=== PATIENT | female | born 1985 | race Caucasian/White ===

== ENCOUNTER → 2020-09-06 | Outpatient (CLI) | payer OTHER | END | disposition home or self-care (01) | LOC: LABWHC1 10:39 | DX: F90.0 Attention-deficit hyperactivity disorder, predominantly inattentive type (principal) | CPT/HCPCS: 36415; 80307 ==

== ENCOUNTER → 2020-09-30 | Outpatient (CLI) | payer OTHER ==
[2020-09-30 10:35] LABS: Basophils # (A) 0.1 k/uL (0-0.2); Basophils % (A) 1 %; Eosinophils # (A) 0.2 k/uL (0-0.7); Eosinophils % (A) 2 %; HCT 38.3 % (34.0-46.0); HGB 13.4 gm/dL (11.4-16.0); Lymphocytes # (A) 2.1 k/uL (1.0-4.8); Lymphocytes % (A) 25 %; MCH 31.7 pg (25.0-35.0); MCHC 34.8 g/dL (31.0-37.0); Monocytes # (A) 0.4 k/uL (0-1.0); Monocytes % (A) 5 %; Neutrophils # (A) 5.6 k/uL (1.3-7.7); Neutrophils % (A) 66 %; Platelet Count 237 k/uL (150-450); RBC 4.21 m/uL (3.80-5.40); RDW 12.4 % (11.5-15.5); WBC 8.6 k/uL (3.8-10.6)
[2020-09-30 17:28] LABS: Progesterone 2.3 ng/mL
[2020-09-30 18:12] LABS: African American GFR (CKD) 110.7 (60.0-200.0); Albumin 4.3 g/dL (3.80-4.90); Albumin/Globulin Ratio 1.87 (1.60-3.17); Anion Gap 9.2 mmol/L (4.00-12.00); BUN/Creat Ratio 11.25 Ratio (12.00-20.00); Calcium 9.4 mg/dL (8.7-10.3); Carbon Dioxide 25.8 mmol/L (21.6-31.8); Chol/HDL Ratio 2.44; Globulin 2.3 g/dL (1.6-3.3); Non-African American GFR(CKD) 95.5 (60.0-200.0); Potassium 3.9 mmol/L (3.5-5.5); Total Bilirubin 0.6 mg/dL (0.3-1.2); Total Protein 6.6 g/dL (6.2-8.2)
[2020-09-30 18:21] LABS: Luteinizing Hormone 1.2 mIU/mL
[2020-09-30 18:22] LABS: Follicle Stimulating Hormone 1.5 mIU/mL
[2020-09-30 18:31] LABS: Estradiol 790.7 pg/mL
[2020-09-30 19:53] LABS: Hemoglobin A1C 4.9 % (4.0-6.0)
== END | disposition home or self-care (01) ==
LOC: LABWHC1 09:15
PROVIDERS: ATTEND Nurse Practitioner Family
DX: E25.9 Adrenogenital disorder, unspecified (principal); E34.8 Other specified endocrine disorders; F64.8 Other gender identity disorders; R89.1 Abnormal level of hormones in specimens from other organs, systems and tissues; L68.0 Hirsutism
CPT/HCPCS: 36415; 80053; 80061; 82642; 82670; 82679; 82681; 83001; 83002; 83036; 84144; 84270; 84403; 85025

== ENCOUNTER → 2021-08-04 | Outpatient (CLI) | payer OTHER ==
[2021-08-04 16:44] LABS: Chol/HDL Ratio 2.57 Ratio; LDL Cholesterol,Calculated 97.9 mg/dL (0.0-131.0)
== END | disposition home or self-care (01) ==
LOC: LABWHC1 09:04
PROVIDERS: ATTEND Nurse Practitioner Family
DX: E25.9 Adrenogenital disorder, unspecified (principal); E34.8 Other specified endocrine disorders; F64.8 Other gender identity disorders; L68.0 Hirsutism; R89.1 Abnormal level of hormones in specimens from other organs, systems and tissues
CPT/HCPCS: 36415; 80061; 82670

== ENCOUNTER 2021-10-11 23:04 | Inpatient (IN) | payer OTHER ==
[2021-10-12 03:09] LABS: Amphetamine Screen,Urine Not Detected (NotDetected); Barbiturate Screen,Urine Not Detected (NotDetected); Benzodiazepines Screen,Urine Not Detected (NotDetected); Cocaine Screen,Urine Not Detected (NotDetected); Methadone Screen, Urine Not Detected (NotDetected); Opiate Screen,Urine Not Detected (NotDetected); Oxycodone Screen, Urine Not Detected (NotDetected); Phencyclidine Screen,Urine Not Detected (NotDetected); Tricyclic Antidepressant,Urine Not Detected (NotDetected); Urn Cannabinoid Scrn Not Detected (NotDetected)
--- NOTE | 2021-10-12 05:23 | ED ---
General Adult HPI - General Source: patient, RN notes reviewed, old records reviewed Mode of arrival: ambulatory Limitations: no limitations <David Parker - Last Filed: 10/12/21 06:30> <Keith Estes - Last Filed: 10/12/21 07:44> - General Chief complaint: Psychiatric Symptoms Stated complaint: Mental Health Time Seen by Provider: 10/12/21 03:18 - History of Present Illness Initial comments: Patient is a 36-year-old with past medical history remarkable for psychiatric illness who has been compliant with medications presents emergency department concern for suicidal ideations. Has thoughts of wanting to order chemicals off [employer] to take him to kill himself. Does have prior attempts with self inju ring.. Denies any attempts today and denies taking any medications. Denies any homicidal ideations, attempts, plans. Denies any alcohol use. Denies any drug use. Denies any auditory or visual hallucinations. Has no other acute complaints at this time. Informed his therapist of his suicidal ideations who instructed the patient to come to the emergency department for further evaluation by psychiatry. (David Parker) - Related Data Allergies Allergy/AdvReac Type Severity Reaction Status Date / Time No Known Allergies Allergy Verified 10/11/21 23:51 Review of Systems ROS Other: All systems not noted in ROS Statement are negative. <David Parker - Last Filed: 10/12/21 06:30> ROS Other: All systems not noted in ROS Statement are negative. <Keith Estes - Last Filed: 10/12/21 07:44> ROS Statement: Those systems with pertinent positive or pertinent negative responses have been documented in the HPI. Review of Systems: CONST: Denies fever EYES: Denies blurry vision ENT: Denies nasal congestion C/V: Denies Chest pain RESP: Denies shortness of breath GI: Denies abdominal pain : Denies dysuria SKIN: Denies rash. MSK: Denies joint pain. NEURO: Denies headache PSYCH: Denies homicidal ideations/plans/attempts. Denies visual or auditory hallucinations. Endorses suicidal ideations, but denies any plans or attempts. (David Parker) Past Medical History Past Medical History: No Reported History History of Any Multi-Drug Resistant Organisms: None Reported Past Surgical History: No Surgical Hx Reported Past Psychological History: Bipolar, PTSD Smoking Status: Never smoker Past Alcohol Use History: None Reported Past Drug Use History: None Reported <David Parker - Last Filed: 10/12/21 06:30> General Exam Limitations: no limitations <KeithDavid - Last Filed: 10/12/21 06:30> - General Exam Comments Initial Comments: General: Appears in no acute distress. HEAD: Normal with no signs of head trauma. EYES: PERRLA, EOMI, conjunctiva normal, no discharge. ENT: Hearing grossly intact, normal oropharynx. RESPIRATORY: Clear breath sounds bilaterally. No wheezes, rales, or rhonchi. C/V: Regular rate and rhythm. S1 and S2 auscultated, no edema, peripheral pulses 2+ and intact throughout ABD: Abd is soft, nontender, nondistended EXT: Normal range of motion, no obvious deformity SKIN: No rashes or lesions observed on exposed skin. NEURO: Alert and Oriented 4. (David Parker) Course Vital Signs 10/11/21 10/12/21 10/12/21 23:46 03:26 06:13 Pulse Rate 80 94 83 Respiratory 16 18 18 Rate Blood Pressure 126/84 120/79 109/71 O2 Sat by Pulse 100 99 97 Oximetry Medical Decision Making <David Parker - Last Filed: 10/12/21 06:30> - Medical Decision Making Based on the patient's presentation and physical exam, I do believe that the patient requires psychiatric evaluation. BAT was 0. UDS is negative. I do not believe that further laboratory studies or imaging are required at this time. Patient is medically cleared for evaluation by psychiatry. Disposition is pending psychiatric evaluation. At this time it is the end of my shift. Disposition is pending psych evaluation. Patient was signed out in stable condition to Dr. Estes. (David Parker) - Lab Data Lab Results 10/12/21 10/12/21 Range/Units 02:25 06:57 Urine Opiates Screen Not Detected (NotDetected) Ur Oxycodone Screen Not Detected (NotDetected) Urine Methadone Screen Not Detected (NotDetected) Ur Propoxyphene Screen Not Detected (NotDetected) Ur Barbiturates Screen Not Detected (NotDetected) U Tricyclic Antidepress Not Detected (NotDetected) Ur Phencyclidine Scrn Not Detected (NotDetected) Ur Amphetamines Screen Not Detected (NotDetected) U Methamphetamines Scrn Not Detected (NotDetected) U Benzodiazepines Scrn Not Detected (NotDetected) Urine Cocaine Screen Not Detected (NotDetected) U Marijuana (THC) Screen Not Detected (NotDetected) Coronavirus (PCR) Not Detected (Not Detectd) Disposition <David Parker - Last Filed: 10/12/21 06:30> Time of Disposition: 07:44 <Keith Estes - Last Filed: 10/12/21 07:44> Clinical Impression: Encounter for psychiatric assessment, Suicidal ideation Disposition: ADMITTED IP TO THIS HOSP Referrals: Nonstaff,Physician [Primary Care Provider] - 1-2 days
[2021-10-12] MEDS ORDERED: ACETAMINOPHEN TAB 500 MG TAB PO STA (06:08)
[2021-10-12] MEDS ORDERED: MAG HYDROX/AL HYDROX/SIMETH 30 ML CUP PO PRN (15:57)
[2021-10-12] MEDS ORDERED: ACETAMINOPHEN TAB 325 MG TAB PO PRN (15:57)
[2021-10-12] MEDS ORDERED: MAGNESIUM HYDROXIDE 2,400 MG/10 ML CUP PO PRN (15:57)
[2021-10-12] MEDS ORDERED: HALOPERIDOL LACTATE 5 MG/ML 1 ML VIAL IM PRN (15:57)
[2021-10-12] MEDS ORDERED: LORazepam 2 MG/ML INJ IM PRN (16:06)
[2021-10-12] MEDS ORDERED: haloperidoL 5 MG TAB PO PRN (16:07)
[2021-10-12] MEDS ORDERED: PATIENT'S OWN (Progesterone, Micronized [Progesterone] 100 MG Capsule) PO SCH (16:15)
[2021-10-12] MEDS ORDERED: ESTRADIOL VALERATE IM SCH (16:15)
[2021-10-12] MEDS: VORTIOXETINE HYDROBROMIDE 20 MG TABLET PO SCH (18:06)
[2021-10-12] MEDS: BICALUTAMIDE 50 MG TAB PO SCH (18:07)
[2021-10-12] MEDS: PATIENT'S OWN (Progesterone, Micronized [Progesterone] 100 MG Capsule) PO SCH (19:15)
[2021-10-12] MEDS: LORazepam 1 MG TAB PO PRN (23:17)
--- NOTE | 2021-10-13 03:28 | P.MDCNMH ---
History of Present Illness H&P Date: 10/13/21 Chief Complaint: medical eval 36 year old female with no sinificant past medical history comes in for psych eval due to suicidal thoughts, planning on buying chemical off [employer] to kill herself. denies any medical concerns at this time, denies any fever, chills, headache, nausea vomiting, abd pain , chest pain or trouble breathing Review of Systems Pertinent positives as noted in HPI. All other systems were reviewed and are negative Past Medical History Past Medical History: No Reported History History of Any Multi-Drug Resistant Organisms: None Reported Past Surgical History: No Surgical Hx Reported Past Psychological History: Bipolar, PTSD Smoking Status: Never smoker Past Alcohol Use History: None Reported Past Drug Use History: None Reported - Past Family History Family Family Medical History: No Reported History Medications and Allergies Home Medications Medication Instructions Recorded Confirmed Type Bicalutamide 50 mg PO DAILY 10/12/21 10/12/21 History Ergocalciferol [Vitamin D2 (1250 1,250 mcg PO WE 10/12/21 10/12/21 History Mcg = 04752 Iu)] Estradiol Valerate 200mg/5ml 4 mg IM Q5D 10/12/21 10/12/21 History Injection LORazepam [Ativan] 0.5 mg PO DAILY PRN 10/12/21 10/12/21 History Progesterone, Micronized 200 mg PO DAILY 10/12/21 10/12/21 History [Progesterone] Vortioxetine Hydrobromide 20 mg PO DAILY 10/12/21 10/12/21 History [Trintellix] traZODone HCL 25 - 100 mg PO HS PRN 10/12/21 10/12/21 History Allergies Allergy/AdvReac Type Severity Reaction Status Date / Time No Known Allergies Allergy Verified 10/12/21 08:25 Physical Exam Vitals: Vital Signs Temp Pulse Pulse Resp BP BP Pulse Ox 10/12/21 19:01 98.5 F 97 18 136/92 99 10/12/21 18:22 98.5 F 97 16 99 10/12/21 09:00 18 10/12/21 08:00 97.8 F 85 18 109/72 98 10/12/21 07:00 18 10/12/21 06:13 83 18 109/71 97 Intake and Output 10/12/21 10/12/21 10/13/21 14:59 22:59 06:59 Other: Weight 56.699 kg Constitutional: No acute distress, conversant, pleasant Eyes: Anicteric sclerae, moist conjunctiva, Pupils equal round reactive to light ENMT: NC/AT Oropharynx clear, no erythema, or exudates Neck: Supple, FROM, no masses, or JVD No carotid bruits No thyromegaly Lungs: Clear to auscultation Clear to percussion Normal respiratory effort, no accessory muscle use Cardiovascular: Heart regular in rate and rhythm, No murmurs, gallops, or rubs No peripheral edema Abdominal: Soft Nontender, no guarding, rebound or rigidity Abdomen moving with respiration Normoactive bowel sounds No hepatomegaly, No splenomegaly No palpable mass No abdominal wall hernia noted Skin: Normal temperature, tone, texture, turgor No induration No subcutaneous nodules No rash, lesions No ulcers Extremities: No digital cyanosis No clubbing Pedal pulses intact and symmetrical Radial pulses intact and symmetrical No calf tenderness Psychiatric: Alert and oriented to person, place and time Depressed affect Neuro Muscles Strength 5/5 in all 4 extremities Sensation to light touch grossly present throughout Cranial nerves II-XII grossly intact No focal sensory deficits Lymphatics: no palpable cervical or supraclavicular , or inguinal lymph nodes Cranial Nerve Examination - Cranial Nerves Cranial Nerve II- Optic: Intact Cranial Nerve III- Oculomotor: Intact Cranial Nerve IV- Trochlear: Intact Cranial Nerve V- Trigeminal: Intact Cranial Nerve - Abducens: Intact Cranial Nerve VII- Facial: Intact Cranial Nerve VIII- Auditory: Intact Cranial Nerve IX- Glossopharyngeal: Intact Cranial Nerve X- Vagus: Intact Cranial Nerve XI- Accessory: Intact Cranial Nerve XII- Hypoglossal: Intact Assessment and Plan Assessment: Depression suicidal ideation Management per psych Denies any substance abuse Follow-up labs Thank you for allowing us to participate in the care of this patient. We will follow peripherally. Do not hesitate to contact us with questions. Someone can be reached from the [facility] [place] [place] at all hours of the day at [phone].
[2021-10-13 07:15] LABS: Basophils # (A) 0.1 k/uL (0-0.2); Basophils % (A) 1 %; Eosinophils # (A) 0.2 k/uL (0-0.7); Eosinophils % (A) 2 %; HCT 42.8 % (34.0-46.0); HGB 14.4 gm/dL (11.4-16.0); Lymphocytes # (A) 3.8 k/uL (1.0-4.8); Lymphocytes % (A) 44 %; MCH 31.7 pg (25.0-35.0); MCHC 33.7 g/dL (31.0-37.0); MCV 94.1 fL (80.0-100.0); Mean Platelet Volume 7.6; Monocytes # (A) 0.4 k/uL (0-1.0); Monocytes % (A) 5 %; Neutrophils # (A) 3.9 k/uL (1.3-7.7); Neutrophils % (A) 46 %; Platelet Count 250 k/uL (150-450); RBC 4.55 m/uL (3.80-5.40); RDW 11.9 % (11.5-15.5); WBC 8.6 k/uL (3.8-10.6)
[2021-10-13 07:38] LABS: ALT 21 U/L (4-34); AST 24 U/L (14-36); African American GFR (CKD) >90 (>60 ml/min/1.73 sqM); Albumin 4.3 g/dL (3.5-5.0); Alkaline Phosphatase 42 U/L (38-126); Anion Gap 7 mmol/L; Blood Urea Nitrogen 7 mg/dL (7-17); Calcium 9.6 mg/dL (8.4-10.2); Carbon Dioxide 26 mmol/L (22-30); Chloride 105 mmol/L (98-107); Glucose 94 mg/dL (74-99); Non-African American GFR(CKD) >90 (>60 ml/min/1.73 sqM); Potassium 4.2 mmol/L (3.5-5.1); Sodium 138 mmol/L (137-145); Total Protein 7.8 g/dL (6.3-8.2)
[2021-10-13] MEDS: VORTIOXETINE HYDROBROMIDE 20 MG TABLET PO SCH (09:51)
[2021-10-13] MEDS: BICALUTAMIDE 50 MG TAB PO SCH (09:51)
[2021-10-13] MEDS: PATIENT'S OWN (Progesterone, Micronized [Progesterone] 100 MG Capsule) PO SCH (10:48)
[2021-10-13 11:09] LABS: Chol/HDL Ratio 2.36 Ratio; LDL Cholesterol,Calculated 98.8 mg/dL (0.0-131.0); VLDL Calculation 16.64 mg/dL (5.00-40.00)
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
[2021-10-13] MEDS: LORazepam 1 MG TAB PO PRN (22:07)
[2021-10-14 07:22] VITALS: TEMP 97.7
[2021-10-14] MEDS: BICALUTAMIDE 50 MG TAB PO SCH (09:28)
[2021-10-14] MEDS: VORTIOXETINE HYDROBROMIDE 20 MG TABLET PO SCH (09:28)
[2021-10-14] MEDS: PATIENT'S OWN (Progesterone, Micronized [Progesterone] 100 MG Capsule) PO SCH (09:30)
--- NOTE | 2021-10-14 13:04 | P.PN ---
Subjective Progress Note Date: 10/14/21 Principal diagnosis: Major depressive disorder unspecified Posttraumatic stress disorder unspecified Autism spectrum disorder by history Cluster B personality disorder by history Dissociative disorder unspecified Subjective data: I'm not sure why this personality decided to kill ourselves. We do not agree with that I have about 6 personalities that I am dealing with There was something related to the work that was stressing me out Objective data: Patient continues to refer to herself a combination of 6 people and personalities Patient states that the current personalities surprise as to why she tried to kill herself Patient remains euphoric tangential and circumstantial Insight into her problem is poor Patient's formal and operational judgment are impaired Problem-solving abilities impaired Plan: Patient continues to meet the criteria for hospitalization in inpatient treatment for stabilization of psychiatric symptoms and safety Recommend continuation of current medications and treatment Continue supportive care and participation in on the shaikh activities Avelino Silvana Oneil 10/14/2021 Objective - Vital Signs Vital signs: Vital Signs Temp 97.7 F 10/14/21 07:21 Pulse 90 10/14/21 07:21 Resp 16 10/13/21 03:59 BP 119/73 10/14/21 07:21 Pulse Ox 98 10/14/21 07:21 - Labs CBC & Chem 7: 10/13/21 06:51 10/13/21 06:51
[2021-10-14] MEDS: LORazepam 1 MG TAB PO PRN ×2 (15:33→21:13)
[2021-10-14] MEDS: traZODone HCL 50 MG TAB PO PRN (21:13)
[2021-10-15] MEDS: VORTIOXETINE HYDROBROMIDE 20 MG TABLET PO SCH (08:05)
[2021-10-15] MEDS: BICALUTAMIDE 50 MG TAB PO SCH (08:05)
[2021-10-15] MEDS: PATIENT'S OWN (Progesterone, Micronized [Progesterone] 100 MG Capsule) PO SCH (08:06)
--- NOTE | 2021-10-15 11:38 | P.PN ---
Subjective Progress Note Date: 10/15/21 Principal diagnosis: Major depressive disorder unspecified Posttraumatic stress disorder unspecified Autism spectrum disorder by history Cluster B personality disorder by history Dissociative disorder unspecified Subjective data: Patient did not verbalize any issues or concerns at this time Patient was seen in in the lounge where she was sitting with several other patients but not actually interacting or socializing Patient denies that she is having any issues or concerns at this time Objective data: Patient continues to refer to herself a combination of 6 people and per sonalities Patient states that the current personalities are surprised as to why she tried to kill herself Patient remains euphoric tangential and circumstantial Insight into her problem is poor Patient's formal and operational judgment are impaired Problem-solving abilities impaired Plan: Patient continues to meet the criteria for hospitalization in inpatient treatment for stabilization of psychiatric symptoms and safety Recommend continuation of current medications and treatment Continue supportive care and participation in [facility] the sha[facility] activities [facility] Objective - Vital Signs Vital signs: Vital Signs Temp 97.7 F 10/14/21 07:21 Pulse 90 10/14/21 07:21 Resp 16 10/13/21 03:59 BP 119/73 10/14/21 07:21 Pulse Ox 98 10/14/21 07:21 Intake & Output 10/14/21 10/15/21 10/15/21 18:59 06:59 18:59 Weight 57.3 kg - Labs CBC & Chem 7: 10/13/21 06:51 10/13/21 06:51
[2021-10-15] MEDS: traZODone HCL 50 MG TAB PO PRN (22:10)
[2021-10-16 06:31] VITALS: BP 134/79; PULSE 63; RESP 14
[2021-10-16] MEDS: BICALUTAMIDE 50 MG TAB PO SCH (08:49)
[2021-10-16] MEDS: VORTIOXETINE HYDROBROMIDE 20 MG TABLET PO SCH (08:49)
[2021-10-16] MEDS: PATIENT'S OWN (Progesterone, Micronized [Progesterone] 100 MG Capsule) PO SCH (08:50)
[2021-10-16] MEDS ORDERED: ESTRADIOL VALERATE IM SCH (09:00)
--- NOTE | 2021-10-16 13:30 | P.DS ---
Providers Date of admission: 10/12/21 15:55 Attending physician: Luis Jeffers MD Consults: 10/12/21 15:57 Consult Physician Routine Consulting Provider: Sergio Physician Consult Reason/Comments: history and physical/medical management Do you want consulting provider notified?: Yes Primary care physician: Physician Nonstaff - Discharge Diagnosis(es) (1) Suicidal ideation Current Visit: Yes Status: Resolved Priority: Low (2) Major depressive disorder Current Visit: Yes Status: Acute Priority: Medium (3) Cluster B personality disorder Current Visit: Yes Status: Chronic Priority: Medium (4) Dissociative disorder Current Visit: Yes Status: Chronic Priority: Low Hospital Course: HISTORY: Patient is a 36-year-old transsexual who presented to the hospital on 10/12/2021 for suicidal ideation with plan to kill himself with silver nitrite. The patient was [facility] call with her therapist, Oskar Lundberg, where she informed him that she intended to kill herself with silver nitrite. She was directed to go to the crisis center and [place], [place]. She was subsequently discharged in her therapist called and told her to go to the nearest hospital. As previous report, the patient reported that she was suicidal due to issues with the relationship with her . Furthermore, the patient reported significant work stressors. She subsequently admitted to the psychiatric unit under a formal voluntary admission. 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 The patient reports at this time, suicidal ideation however is not endorsing any symptoms of hopelessness, helplessness, change in appetite, change in hygiene and grooming, or feelings of excessive guilt. The patient does not report any significant history of bipolar disorder. She reports no periods of excessive energy, mood lability, or impulsivity. She denies any history of auditory or visual hallucinations. The patient does express that she has multiple personalities. 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 The patient reports that this has been ongoing since she was a young child but reports that she does not plan on meeting adding all her personalities. HOSPITAL COURSE: We admitted the patient to under the care of Dr. Cobian. We provided a comprehensive biopsychosocial assessment. The crm consultant completed the admision medical evaluation and did not diagnosis of major medical problem. We continued his outpatient medications including by Casodex 50 mg daily, estradiol validate 20 mg IM every 5 days and progesterone 200 mg daily. We continued also until next 20 mg daily and trazodone 50 mg at bedtime when necessary for sleep. She participated actively in therapeutic groups and activities. She posed no management problem and had no episodes of behavioral dyscontrol. The distress he expressed admission gradually abated. At time of discharge she denied suicidal ideation, intent or plan. She plans to return home and continue with his outpatient mental health treatment. MENTAL STATUS ON DISCHARGE: She presented as a casually groomed thin transsexual male who was pleasant on approach. She eye contact and attended to the interview. She had no distinction features or prominent physical abnormalities. She had a bright but blunted facial expression. She was alert and oriented to person, place and time. She showed no abnormality of psychomotor activity. Her speech was spontaneous with normal rate, volume and rhythm. Affect was blunted but appropriate. She denied suicidal ideation and wishes. She denied homicidal ideation. She denied feeling hopeless, helpless or worthless. She did not express phobias, ideas reference, paranoid ideation or delusions. Her thinking was abstract and associations were coherent, logical and goal directed. She denied hallucinations did not appear to be responding to internal stimuli. DISPOSITION: She would return home and follow up with her therapist on 10/18/2021. Her discharge psychotropic medications include Trintellix 20 mg daily and trazodone 50 mg at bedtime when necessary for sleep. Patient Condition at Discharge: Stable Plan - Discharge Summary Discharge Rx Participant: No New Discharge Prescriptions: Continue Ergocalciferol [Vitamin D2 (1250 Mcg = 07998 Iu)] 1,250 mcg PO WE traZODone HCL 25 - 100 mg PO HS PRN PRN Reason: Insomnia Estradiol Valerate 200mg/5ml Injection 4 mg IM Q5D Progesterone, Micronized [Progesterone] 200 mg PO DAILY Bicalutamide 50 mg PO DAILY LORazepam [Ativan] 0.5 mg PO DAILY PRN PRN Reason: Anxiety Vortioxetine Hydrobromide [Trintellix] 20 mg PO DAILY #30 tab Discharge Medication List Bicalutamide 50 mg PO DAILY 10/12/21 [History] Ergocalciferol [Vitamin D2 (1250 Mcg = 25717 Iu)] 1,250 mcg PO WE 10/12/21 [History] Estradiol Valerate 200mg/5ml Injection 4 mg IM Q5D 10/12/21 [History] LORazepam [Ativan] 0.5 mg PO DAILY PRN 10/12/21 [History] Progesterone, Micronized [Progesterone] 200 mg PO DAILY 10/12/21 [History] traZODone HCL 25 - 100 mg PO HS PRN 10/12/21 [History] Vortioxetine Hydrobromide [Trintellix] 20 mg PO DAILY #30 tab 10/16/21 [Rx] Follow up Appointment(s)/Referral(s): [facility] [Other] - 10/18/21 4:00 pm (Virtual appointment Oskar Lundberg 10/18 @ 16:00) Nonstaff,Physician [Primary Care Provider] - 1-2 days Activity/Diet/Wound Care/Special Instructions: Activity and diet as tolerated. Avoid the use of street drugs and alcohol. Take all medications as prescribed. When you are in need of refills on your medications please contact your medical provider and/or outpatient psychiatrist to have this done. Please go to scheduled outpatient appointment for aftercare treatment. If symptoms return or become worse, call the crisis line at and/or go to the nearest emergency room for evaluation Discharge Disposition: HOME SELF-CARE
[2021-10-18] MEDS ORDERED: ERGOCALCIFEROL 1,250 MCG (50,000 IU) CAPSULE PO SCH (09:00)
== END 2021-10-16 15:08 | disposition home or self-care (01) | DRG 881 ==
LOC: EC 23:04 → 3MHU 10-12 15:55
PROVIDERS: ADMIT Psychiatry & Neurology Psychiatry; ATTEND Psychiatry & Neurology Psychiatry
DX: F32.9 Major depressive disorder, single episode, unspecified (principal); R45.851 Suicidal ideations; F60.89 Other specific personality disorders; F44.81 Dissociative identity disorder; Z20.822 Contact with and (suspected) exposure to COVID-19; F84.0 Autistic disorder; F44.9 Dissociative and conversion disorder, unspecified; F64.0 Transsexualism; F43.10 Post-traumatic stress disorder, unspecified; Z56.0 Unemployment, unspecified; Z79.890 Hormone replacement therapy; Z79.899 Other long term (current) drug therapy; Z91.51 Personal history of suicidal behavior; Z81.1 Family history of alcohol abuse and dependence; Z81.8 Family history of other mental and behavioral disorders
CPT/HCPCS: 80053; 80061; 80306; 82075; 83036; 84443; 85025; 87635; 99285

== ENCOUNTER → 2022-11-20 | Outpatient (CLI) | payer OTHER | END | disposition home or self-care (01) | LOC: LABWHC1 09:28 | PROVIDERS: ATTEND Plastic Surgery | DX: Z53.9 Procedure and treatment not carried out, unspecified reason (principal) ==

== ENCOUNTER → 2022-11-20 | Outpatient (CLI) | payer OTHER ==
[2022-11-20 11:03] LABS: Partial Thromboplastin Time 24.9 sec (22.0-30.0); Prothrombin Time 10.3 sec (9.0-12.0)
[2022-11-20 14:21] LABS: Basophils # (A) 0.06 X 10*3/uL (0.00-0.10); Basophils % (A) 0.8 %; HCT 40.4 % (37.2-46.3); HGB 13.4 g/dL (12.0-15.0); Immature Grans, Automated 0.3 %; Lymphocytes # (A) 2.44 X 10*3/uL (0.90-5.00); Lymphocytes % (A) 32.9 %; MCH 30.5 pg (27.0-32.0); MCHC 33.2 g/dL (32.0-37.0); Mean Platelet Volume 10.3 fL (9.5-12.2); Monocytes # (A) 0.51 X 10*3/uL (0.20-1.00); Monocytes % (A) 6.9 %; NRBC Per 100 WBC 0 /100 WBCS (0.0-0.0); Neutrophils # (A) 4.08 X 10*3/uL (1.80-7.70); Neutrophils % (A) 55.1 %; Platelet Count 226 X 10*3/uL (140-440); RBC 4.39 X 10*6/uL (4.10-5.20); RDW 11.7 % (11.5-14.5); WBC 7.41 X 10*3/uL (4.50-10.00)
[2022-11-20 17:20] LABS: African American GFR (CKD) 128.3 (60.0-200.0); Albumin 4.4 g/dL (3.8-4.9); Albumin/Globulin Ratio 1.52 (1.60-3.17); Anion Gap 13.7 mmol/L (10.00-18.00); BUN/Creat Ratio 18.29 Ratio (12.00-20.00); Blood Urea Nitrogen 12.8 mg/dL (9.0-27.0); Calcium 9.1 mg/dL (8.7-10.3); Carbon Dioxide 22.3 mmol/L (20.0-27.5); Globulin 2.9 g/dL (1.6-3.3); Non-African American GFR(CKD) 110.7 (60.0-200.0); Potassium 4.7 mmol/L (3.5-5.5); Total Bilirubin 0.3 mg/dL (0.30-1.20); Total Protein 7.3 g/dL (6.2-8.2)
== END | disposition home or self-care (01) ==
LOC: LABWHC1 09:33
PROVIDERS: ATTEND Psychiatry & Neurology Psychiatry
DX: F41.1 Generalized anxiety disorder (principal); F90.1 Attention-deficit hyperactivity disorder, predominantly hyperactive type; Z79.891 Long term (current) use of opiate analgesic
CPT/HCPCS: 36415; 80053; 85025; 85610; 85730